=== PATIENT | male | born 1955 | race Caucasian/White ===

== ENCOUNTER 2020-11-24 04:28 | Observation (INO) | payer MEDICARE, BC ==
[~2020-11-24] VITALS: Ht 172.7 cm; Wt 118.2 kg
--- NOTE | ~2020-11-24 | HEMODYNAMI ---
PATIENT:FLORA OTERO MEDICAL RECORD: [id number] : 51 LOCATION:[facility] ADMISSION DATE: 11/24/20 Generatedon:111:32 Patient name: FLORA OTERO Patient #: [id number] SSN: DO B: 1955 Date of study: 11/24/2020 Page: Of Hemodynamic Procedure Report Patient Data Patient Demographics Procedure consent was obtained First Name: FLORA Gender: Male Last Name: BRANDEN : 1955 Patient #: [id number] Age: 65 year(s) Race: Unknown Additional ID: [id number] Contact details Address: [address] [place] [address] [address]REET State: [place] City: [place] Zip code: [address] Past Medical History History of disease Date Diagnosis Comments CAD Allergies Allergen Reaction Date Comments Reported Other allergy 11/24/2020 AUGMENTIN Admission Admission Data Admission Date: 11/24/2020 Admission Time: 5:50 Arrival Date: 11/24/2020 Arrival Time: 0:00 Admit Source: Other Room #: [id number] Height (in.): 67.72 BSA: 2.28 (m2) Height (cm.): 172 BMI: 39.89 (kg/m2) Weight (lbs.): 260.15 Weight (kg.): 118 Lab Results Lab Result Date: 11/24/2020 Lab Result Time: 0:00 Biochemistry Name Units Result Min Max BUN mg/dl 29 --(----)-* 7 18 Creatinine mg/dl 1.1 --(--*-)-- 0.6 1.3 CBC Name Units Result Min Max Hemoglobin g/dl 15.5 --(-*--)-- 13.5 17.5 Procedure Procedure Types Cath Procedure Diagnostic Procedure LHC LH w/Coronaries Sedation Charges Moderate Sedation 25-39 minutes PCI Procedure Hemochron ACT Test Procedure Description Procedure Date Procedure Date: 11/24/2020 Procedure Start Time: 11:01 Procedure End Time: 11:28 Procedure Staff Name Function Todd Casillas MD Performing Physician Shahla Monroe RT Monitor Travis Sierra RN Nurse Ed Martel RT Scrub Procedure Data Cath Procedure Fluoroscopy Diagnostic fluoroscopy Total fluoroscopy Time: 8.9 time: 8.9 min min Diagnostic fluoroscopy Total fluoroscopy dose: dose: 1107 mGy 1107 mGy Contrast Material Contrast Material Type Amount (ml) Isovue 300 87 Entry Location Entry Primary Successful Side Size Upsize Upsize Entry Closure Succes sful Closure Location (Fr) 1 (Fr) 2 (Fr) Remarks Device Remarks Femoral Right 5 Fr 6 Fr Exoseal artery Short Estimated blood loss: 10 ml Diagnostic catheters Device Type Used For End Catheter Placement MULTIPACK JL 4.0 5Fr Procedure catheter MULTIPACK 3DRC 5Fr Procedure catheter MULTIPACK Pigtail 5 Fr Procedure catheter Procedure Complications No complications Procedure Medications Medication Administration Route Dosage 0.9% NaCl I.V. 100 ml/hr Oxygen etCO2 Nasal cannula 2 l/min Heparin Flush Bag added to field 2 bags (1000units/500ml NS) Lidocaine 2% added to field 20 Versed I.V. 1 mg Fentanyl I.V. 50 mcg Versed I.V. 1 mg Fentanyl I.V. 50 mcg Versed I.V. 1 mg Fentanyl I.V. 50 mcg Heparin Bolus I.V. 5000 units Integrilin (Bolus I.V. 10.7 ml 2mg/ml) Digoxin I.V. 0.5 mg Hemodynamics Rest BSA: 2.28 (m2) HGB: 15.5 (g/dl) O2 Consumption: Estimated: 248.75 (ml/min) O2 Co nsumption indexed: Estimated:109.1 (ml/min/m) Heart Rate: 51 (bpm) Pressure Samples Time Site Value (mmHg) Purpose Heart Use Rate(bpm) 11:21 LV 123/18,19 Snapshot 55 Gradients Valve Time Site Site Mean SEP/DFP Peak To Heart Use 1 2 (mmHg) (sec/min) Peak Rate (mmHg) (bpm) Aortic 11:22 LV AO 79 Snapshots Pre Cath Intra NCS Post Cath Vital Signs Time Heart Resp SPO2 etCO2 NIBP (mmHg) Rhythm Pain Sedation Rate (ipm) (%) (mmHg) Status Level (bpm) 10:23:10 62 17 32.2 132/65(95) NSR 0 (11) 10(A) , No pain 10:27:59 63 12 98 35.9 127/69(95) NSR 0 (11) 10(A) , No pain 10:32:15 61 12 96 38.1 123/68(91) NSR 0 (11) 10(A) , No pain 10:36:38 62 11 96 39.6 129/65(100) NSR 0 (11) 10(A) , No pain 10:40:58 64 11 96 32.9 129/62(95) NSR 0 (11) 10(A) , No pain 10:45:26 66 18 97 36.7 132/74(106) NSR 0 (11) 10(A) , No pain 10:49:50 66 13 96 33.7 133/66(86) NSR 0 (11) 10(A) , No pain 10:54:10 64 11 96 37.4 129/64(100) NSR 0 (11) 10(A) , No pain 10:58:28 66 10 96 35.2 125/67(94) NSR 0 (11) 10(A) , No pain 11:02:46 67 11 95 13.4 120/68(95) NSR 0 (11) 10(A) , No pain 11:07:06 68 11 97 0 134/68(100) NSR 0 (11) 10(A) , No pain 11:11:33 68 12 97 29.9 133/70(93) NSR 0 (11) 10(A) , No pain 11:15:55 72 11 97 23.2 127/68(102) NSR 0 (11) 10(A) , No pain 11:20:15 69 11 98 35.2 131/76(105) NSR 0 (11) 10(A) , No pain 11:24:23 115 15 98 35.2 129/99(113) NSR 0 (11) 10(A) , No pain Medications Time Medication Route Dose Verified Delivered Reason Notes Effectiveness by by 10:31:15 0.9% NaCl I.V. 100 Todd Travis used for ml/hr [facility] Freddy Sierra RN procedure 10:31:22 Oxygen etCO2 2 Todd Robles used for Nasal l/min [facility] Freddy Sierra RN procedure cannula 10:31:31 Heparin Flush added 2 Todd Brooks used for Bag to bags [facility] John procedure (1000units/500ml field MD GARCIA NS) 10:31:38 Lidocaine 2% added 20ml Todd Brooks for local to vial [facility] anesthetic field MD GARCIA 10:57:13 Versed I.V. 1 mg Todd Robles for sedation St Freddy Sierra RN, MD 10:57:21 Fentanyl I.V. 50 Todd Robles for sedation mcg St Freddy Sierra RN, MD 11:00:22 Versed I.V. 1 mg Todd Rodríguezy for sedation St Freddy Sierra RN, MD 11:00:25 Fentanyl I.V. 50 Todd Rodríguezy for sedation mcg St Freddy Sierra RN, MD 11:02:26 Versed I.V. 1 mg Todd Robles for sedation St Freddy Sierra RN, MD 11:02:29 Fentanyl I.V. 50 Todd Rodríguezy for sedation mcg St Freddy Sierra RN, MD 11:08:26 Heparin Bolus I.V. 5000 Todd Robles for VERIF IED units St Freddy Sierra RN anticoagulation PER LIN CASILLAS MD 11:13:39 Integrilin I.V. 10.7 Todd Robles for WASTE D (Bolus 2mg/ml) ml St Freddy Sierra RN antiplatelet 9.3 ML therapy 11:25:21 Digoxin I.V. 0.5 Todd Robles for arrhythmia mg St Freddy Sierra RN, MD Procedure Log Time Note 10:06:09 Lab Result : BUN 29 mg/dl 10:06:09 Lab Result : Hemoglobin 15.5 g/dl 10:06:09 Lab Result : Creatinine 1.1 mg/dl 10:06:44 Admit Source: Other 10:06:50 Procedure Status Elective Heart Cath (OP). 10:06:53 Travis Sierra RN sent for patient. Start room use. 10:06:56 Time tracking: Regular hours (M-F 7:00 - 5:00) 10:07:00 Plan of Care:Hemodynamics will remain stable., Cardiac rhythm will remain stable., Comfort level will be maintained., Respiratory function will remain adequate., Patient/ family verbilizes understanding of procedure., Procedure tolerated without complication., Recovers from procedure without complications.. 10:21:53 Patient received from Pre/Post Procedure Room to [facility] Alert and oriented. Tansferred to table in Supine position. 10:21:55 Signed procedure consent form obtained from patient. 10:21:56 Warm blankets applied, and abel hugger turned on for patient comfort. 10::56 Correct patient and procedure confirmed by team. 10::57 Vital chart was started 10:22:00 Baseline sample Acquired. 10:22:05 Rhythm: sinus rhythm 10:22:07 Full Disclosure recording started 10:22:15 H&P Date Dictated: 11/24/2020 ER History on chart.. 10:22:30 Patient allergic to Other allergyAUGMENTIN 10:22:32 Is the patient allergic to Iodine/contrast media? No. 10:22:33 Is patient on blood thinner?No 10:22:38 Patient diabetic? Yes. 10:22:39 If diabetic: On Metformin? No 10:22:44 Previous problem with sedation/anesthesia? No ? 10:22:45 Snore? Yes 10:22:46 Sleep apnea? Yes 10:22:47 Deviated septum? No 10:22:48 Opens mouth fully? Yes 10:22:49 Sticks out tongue? Yes 10:22:51 Airway obstruction? No ? 10:22:56 Pre procedure: right dorsailis pedis pulse 1+ Palpable, but thready & weak; easily obliterated 10:22:58 Dentures? No ? 10:24:56 IV patent on arrival in left hand with 0.9% NaCl at [facility]. 10:26:02 Lab results completed and on chart. 10:26:06 Right groin area was prepped with chlora-prep and draped in sterile fashion 10:26:06 Alarms reviewed by R. N. 10:26:07 Sharps counted by scrub and verified by R.N. 10:30:47 Use device set Femoral Dx 10:30:48 ACIST Syringe (42044) opened to sterile field. 10:30:49 Bag Decanter (2002S) opened to sterile field. 10:30:50 ACIST Hand Control (34055) opened to sterile field. 10:30:50 ACIST Manifold (85631) opened to sterile field. 10:30:51 Tegaderm 4 x 4 (1626W) opened to sterile field. 10:30:52 Medline Cath Pack ([id number]) opened to sterile field. 10:30:53 DIAGNOSTIC Multipack 5Fr catheter set (VV3987) opened to sterile field. 10:30:54 SHEATH 5FR [place] (HEN247) opened to sterile field. 10:30:54 EMERALD Guide Wire (423-349) opened to sterile field. 10:31:15 0.9% NaCl 100 ml/hr I.V. was administered by Travis Sierra RN; used for procedure; Verbal order read back and verified. 10:31:22 Oxygen 2 l/min etCO2 Nasal cannula was administered by Travis Sierra RN; used for procedure; Verbal order read back and verified. 10:31:29 Zero performed for pressure channel P1 10:31:31 Heparin Flush Bag (1000units/500ml NS) 2 bags added to field was administered by Todd Casillas MD; used for procedure; Verbal order read back and verified. 10:31:38 Lidocaine 2% 20ml vial added to field was administered by Todd Casillas MD; for local anesthetic; Verbal order read back and verified. 10:36:34 Patient Weight : 260.15 lbs 10:36:38 Patient Height : 67.72 inches 10:36:42 Arrival Date: 11/24/2020 12:00:00 AM 10:42:11 Zero performed for pressure channel P1 10:54:13 Pre-procedure instructions explained to patient. 10:54:14 Pre-op teaching completed and patient verbalized understanding. 10:54:16 Family in patients room. 10:54:17 Patient NPO since Midnight. 10:56:54 --------ALL STOP TIME OUT------ 10:56:54 Final Timeout: patient, procedure, and site verified with staff and physician. All members of the team are in agreement. 10:56:55 Right groin site verified by team. 10:56:58 Fire Safety Assessment: A--An alcohol-based skin anteseptic being used preoperatively., C--Open oxygen or nitrous oxide is being used., D--An ESU, laser, or fiber-optic light is being used. 10:57:01 Physical assessment completed. ASA score P 2 - A patient with mild systemic disease as per Todd Casillas MD. 10:57:03 1) 90+ Normal kidney functon but urine findings or structural abnormalities or genetic trait point to kidney disease. 10:57:08 Maximum allowable contrast dose (3.7 X eGFR X 0.75)197 ml. 10:57:10 Sedation plan: IV Moderate Sedation Medication:Versed, Fentanyl 10:57:13 Versed 1 mg I.V. was administered by Travis Sierra RN; for sedation; Verbal order read back and verified. 10:57:21 Fentanyl 50 mcg I.V. was administered by Travis Sierra RN; for sedation; Verbal order read back and verified. 11:00:22 Versed 1 mg I.V. was administered by Travis Sierra RN; for sedation; Verbal order read back and verified. 11:00:25 Fentanyl 50 mcg I.V. was administered by Travis Sierra RN; for sedation; Verbal order read back and verified. 11:01:18 Procedure started. 11::52 Local anesthetic to right femoral artery with Lidocaine 2% by Todd Casillas MD.INITIAL ACCESS ONLY 11:02:26 Versed 1 mg I.V. was administered by Travis Sierra RN; for sedation; Verbal order read back and verified. 11::29 Fentanyl 50 mcg I.V. was administered by Travis Sierra RN; for sedation; Verbal order read back and verified. 11:03:36 A 5 Fr sheath was inserted into the Right Femoral artery 11:04:12 A MULTIPACK JL 4.0 5Fr catheter was advanced over the wire and used for Procedure. 11:05:37 LCA angiography performed. 11:06:10 Catheter removed. 11:06:15 A MULTIPACK 3DRC 5Fr catheter was advanced over the wire and used for Procedure. 11:06:56 RCA angiography performed. 11:06:57 Catheter removed. 11:08:26 Heparin Bolus 5000 units I.V. was administered by Travis Sierra RN; for anticoagulation; VERIFIED PER LIN CASILLAS MD Verbal order read back and verified. 11:09:11 Proceeding to intervention. 11:09:18 GUIDE 6FR XBLAD 3.5 catheter ([id number]) opened to sterile field. 11:09:23 INFLATOR Merit BasixCompak (JJ5221) opened to sterile field. 11:09:36 SHEATH 6FR [place] (EWN552) opened to sterile field. 11:10:02 BMW 300cm Straight Eckley 2 wire (5875615) opened to sterile field. 11:10:15 Sheath upsized to a 6 Fr Short. 11:10:25 Pre PCI Site: Sun'Aq LAD has 100% stenosis. 11:10:28 ACC Pre-intervention DONNELL Flow is 0. 11:10:36 6 Fr XBLAD 3.5 guide catheter was inserted over the wire 11:11:10 BMW 300 wire advanced. 11:13:39 Integrilin (Bolus 2mg/ml) 10.7 ml I.V. was administered by Travis Sierra RN; for antiplatelet therapy; WASTED 9.3 ML Verbal order read back and verified. 11:15:47 Wire removed. 11:15:53 UNABLE TO CROSS 11:15:59 WHISPER 300cm guide wire ([id number]) opened to sterile field. 11:16:10 WHISPER 300 wire advanced. 11:20:08 Wire removed. 11:20:18 UNABLE TO CROSS LESION 11:20:23 Guide catheter removed. 11:20:29 A MULTIPACK Pigtail 5 Fr catheter was advanced over the wire and used for Procedure. 11:21:16 LV gram done using VELÁSQUEZ 11::18 Injector settings: Ml/sec: 10, Volume: 20, 11:21:37 LV hemodynamics recorded. 11:21:56 EF : 55 % 11:22:01 Catheter removed. 11:22:10 EXOSEAL 6Fr (EX600) opened to sterile field. 11:22:50 Sheath removed intact; hemostasis achieved with Exoseal to the Right Femoral artery. 11:24:05 Procedure ended.(Physican Out) 11:24:31 Contrast amount:Isovue 300 87ml. 11:24:33 Maximum allowable dose exceeded? No. 11:24:39 Fluoroscopy time 08.90 minutes. 11:24:44 Fluoroscopy dose: 1107 mGy 11:24:44 Flurop Dose total: 1107 11:24:49 Dose Area Product 99970 mGy/cm. 11:24:51 Sharps counted by scrub and verified by R.N. 11:24:59 Post-op/insertion site Right Femoral artery dressed using a 4 x 4 and Tegaderm. 11:25:21 Digoxin 0.5 mg I.V. was administered by Travis Sierra RN; for arrhythmia; Verbal order read back and verified. 11:25:41 Post-procedure physical assessment completed. ASA score P 2 - A patient with mild systemic disease as per Todd Casillas MD. 11:25:44 Post procedure rhythm: atrial fibrillation 11:25:47 Estimated blood loss: 10 ml 11:25:56 Insertion/operative site no bleeding no hematoma. 11:25:58 Post procedure instruction explained to patient.Patient verbalizes understanding. 11:25:59 Patient needs reinforcement of post procedure teaching. 11:26:36 Procedure type changed to Cath procedure, Diagnostic procedure, LHC, C w/Coronaries, Sedation Charges, Moderate Sedation 25-39 minutes, PCI procedure, Hemochron ACT Test 11:27:11 Procedure and supply charges have been captured, reviewed, submitted and are correct. 11:27:13 Procedure Complication : No complications 11:27:15 Vital chart was stopped 11:27:22 [facility] Findings: MVD- MD will discuss options w/ pt 11:27:23 Operative report dictated upon procedure completion. 11:27:24 See physician's report for complete and final results. 11:27:26 Report given to Pre/Post Procedure Room. 11:27:28 Patient transfered to Pre/Post Procedure Room with Bed. 11:28:05 Procedure ended. 11:28:05 Full Disclosure recording stopped 11:28:10 End room use (Document Last) 11:30:13 ACT drawn and resulted at 192 seconds. (normal therapeutic range 180-240 seconds). 11:31:55 Procedure ended.(Physican Out) Device Usage Item Name Manufacture Quantity Catalog Hospital Part Current Minimal L ot# / Number Charge Number Stock Stock Serial# Code ACIST Acist 1 35768 266480 838126 769579 20 Syringe Medical (57874) Systems Inc Bag Microtek 1 364446 75886 512472 5 Decanter Medical Inc. () ACIST Hand Acist 1 95114 820938 216246 108723 5 Control Medical (91937) Systems Inc ACIST Acist 1 65077 980538 070034 469506 5 Manifold Medical (86260) Systems Inc Tegaderm 4 3M 1 1626W 471148 641389 225725 5 x 4 (1626W) Medline Medline 1 [id number] 719940 15447 695337 5 Cath Pack ([id number]) DIAGNOSTIC Cardinal 1 AG5162 039879 56415 810061 30 CRI Technologies 5Fr catheter set (PB1641) SHEATH 5FR Terumo 1 KZZ680 112499 668206 275271 5 [place] (VOK016) EMERALD Cardinal 1 502-455 916451 429741 742083 5 Guide Wire Health (502-455) MULTIPACK Cardinal 1 418859 5 JL 4.0 5Fr Health catheter MULTIPACK Cardinal 1 325966 5 3DRC 5Fr Health catheter GUIDE 6FR Cardinal 1 [id number] 045448 852983 719800 10 XBLAD 3.5 Health catheter ([id number]) INFLATOR Merit 1 VU1115 042287 106878 602001 15 [facility] Medical BasixCompak (WV6407) SHEATH 6FR Terumo 1 RJT145 994915 887782 999190 40 [place] (LXN502) BMW 300cm Carey 1 0120988 146088 569108 243544 5 Straight Vascular Eckley 2 wire (1383673) WHISPER Carey 1 [id number] 480757 364333 654894 5 300cm guide Vascular wire (2389090HX) MULTIPACK Cardinal 1 191726 5 Pigtail 5 Health Fr catheter EXOSEAL 6Fr Cardinal 1 EX600 386294 947696 837012 10 (EX600) Health Signature Audit Powers Stage Time Signature Unsigned Intra-Procedure 11/24/2020 Shahla Monroe 11:31:10 AM RT(R) Intra-Procedure 11/24/2020 Travis Sierra RN 11:31:55 AM Intra-Procedure 11/24/2020 Todd Blakely 11:32:44 AM [id number] [place] [address]
--- NOTE | ~2020-11-24 | OP ---
PATIENT NAME: FLORA OTERO MEDICAL RECORD: [id number] :51 LOCATION:D.M2 D.2125 ADMISSION DATE:11/24/20 SURGEON: TOM HAWLEY MD DATE OF OPERATION: 11/24/2020 PROCEDURE: Left heart catheterization, selective coronary angiography, right femoral artery approach. CATHETERS: A 5-Vincentian sheath, 5/4 left and right Fernie, 5/4 pig. The procedure was well tolerated. We proceeded to do PTCA of LAD. FINDINGS: Left ventriculography in 30-degree VELÁSQUEZ view: Normal wall motion and normal systolic function. CORONARY ANATOMY: LEFT MAIN: Left main is free of disease. LAD: Area of previous stenting is totally occluded. It does fill via right to left collaterals from the right. CIRCUMFLEX: Free of disease. RIGHT CORONARY ARTERY: Large, wrapped around the apex and fills the LAD as well. PLAN: Attempted intervention LAD momentarily. DESCRIPTION OF PROCEDURE: A 5-Vincentian sheath was exchanged for a 6-Vincentian sheath. XB LAD guiding catheter provided excellent guide catheter support. We tried both the BMW and Whisper wire, we were unable to cross the totally occluded LAD. We were unable to transverse this. Given normal LV function with good collaterals, it was felt that procedure be terminated at this point. Of note, the patient did have atrial fibrillation intermittently during the procedure that could explain some of the symptomatology. TRANSINT:[id number] Voice Confirmation ID: [id number] DOCUMENT ID: [id number] TOM HAWLEY MD CC: [id number] DICTATION DATE: 11/24/20 1127 MEDICAL EDUCATION MANAGER: 11/24/202039 ADM IN [address] [place] [address]
[2020-11-24 04:59] LABS: BASOPHILS 0.3 % (0-2); EOSINOPHILS 0 % (0-7); HEMATOCRIT 46.3 % (42.0-54.0); HEMOGLOBIN 15.5 g/dL (13.5-17.5); LYMPHOCYTES 5.3 % (15-50); MCH 28.4 pg (26.0-34.0); MCHC 33.4 g/dL (31.0-37.0); MCV 85.1 fL (80.0-100.0); MEAN PLATELET VOLUME 7.5 fL (7.4-10.4); MONOCYTES 0.9 % (2-11); NEUTROPHILS 93.5 % (40-80); RBC 5.44 10x6/uL (4.20-6.10); RDW 15.1 % (11.5-14.5); WBC 12.5 10x3/uL (4.8-10.8)
[2020-11-24 05:12] LABS: PLATELET COUNT 232 10x3/uL (130-400)
[2020-11-24 05:19] LABS: ANION GAP 16.5 mmol/L (8-16); APTT 31.9 SECONDS (22.8-39.4); CALCIUM 9.3 mg/dL (8.5-10.1); CARBON DIOXIDE 23.6 mmol/L (21.0-32.0); CREATININE - SERUM 1.1 mg/dL (0.6-1.3); INR 1.12 (0.85-1.17); POTASSIUM - SERUM 4.1 mmol/L (3.5-5.1); PROTIME 13.3 SECONDS (11.6-15.0)
[2020-11-24 05:20] LABS: D-DIMER-QUANTITATIVE 0.34 ug/mLFEU (0.20-0.54)
[2020-11-24 05:43] LABS: ALBUMIN 3.6 g/dL (3.4-5.0); BILIRUBIN - TOTAL 0.37 mg/dL (0.2-1.3); PROTEIN - SERUM 7.7 g/dL (6.4-8.2)
[2020-11-24 05:45] LABS: TROPONIN-I 0.253 ng/mL (0.000-0.060)
[2020-11-24 08:13] LABS: CHOL - HDL RATIO 3.5 ratio (2.3-4.9); LDL-HDL RATIO 1.8 ratio (1.5-3.5)
--- NOTE | 2020-11-24 08:58 | NUR ---
PT ARRIVED BY STRETCHER TO HOLDING ROOM 8 FROM ER. HANDOFF GIVEN AT BEDSIDE. PT ABLE TO AMBULATE FROM 1 STRETCHER TO HIS STRETCHER IN HOLDING. PT VOIDED 200 cc OF DARK YELLOW URINE IN URINAL. HAND HYGIENE COMPLETED. RIGHT GROIN PREPPED. CONSENTS HAVE BEEN COMPLETED. LEFT HAND 20G PIV PATENT WITH NS AT KVO. PRE OP MEDS WILL BE GIVEN FOR HEART CATH ORDERED. PT IN NO SIGN OF DISTRESS. CALL LIGHT WITHIN REACH.
[2020-11-24 09:00] VITALS: BP 133/66
--- NOTE | 2020-11-24 09:00 | NUR ---
TO FRENCH COMBER HOLDING
[2020-11-24] MEDS ORDERED: TRAZODONE HCL100 MG PO (09:12)
[2020-11-24] MEDS ORDERED: PLAVIX75 MG PO (09:13)
[2020-11-24] MEDS ORDERED: SYNTHROID75 MCG PO (09:13)
[2020-11-24] MEDS ORDERED: NOVOLOG100 UNIT/1 SC (09:14)
[2020-11-24] MEDS ORDERED: BAYER CHEWABLE81 MG PO (09:14)
[2020-11-24] MEDS ORDERED: PERCOCET 10-321 EAC1 PO (09:14)
[2020-11-24] MEDS ORDERED: TOUJEO SOL300 UNIT/1 SC (09:16)
[2020-11-24] MEDS ORDERED: CRESTOR20 MG PO (09:17)
[2020-11-24] MEDS ORDERED: XANAX1 MG PO (09:18)
[2020-11-24] MEDS ORDERED: ALTACE10 MG PO (09:19)
--- NOTE | 2020-11-24 11:45 | NUR ---
PT ARRIVED BY STRETCHER. PLACED ON MONITORS. ASSESSMENT COMPLETED. VSS AT THIS TIME. CALL LIGHT WITHIN REACH. FAMILY AT BEDSIDE.
--- NOTE | 2020-11-24 12:00 | NUR ---
RIGHT GROIN DRESSING C/D/I. NO S/S OF HEMATOMA NOTED. CALL LIGHT WITHIN REACH. RIGHT PEDAL PULSE PALPABLE. DR. HAWLEY NOTIFIED OF PT'S A-FIB RATE 130s-150s. ORDERS RECEIVED FOR SOTALOL P.O.. DR. FAULKNER NOTIFIED OF PT'S A-FIB AND SHE REQUESTED PT STAY OVERNIGHT TO MONITOR PT'S HEART RATE/RHYTHM. NOTIFIED LAMP ASSEMBLER ROSALINA AND PT AND PT'S . THEY VOICED UNDERSTANDING.
--- NOTE | 2020-11-24 12:30 | NUR ---
PT RESTING COMFORTABLY. DENIES NAUSEA/PAIN. RIGHT GROIN DRESSING C/D/I. NO S/S OF HEMATOMA NOTED. CALL LIGHT WITHIN REACH. VSS AT THIS TIME. PT GIVEN JELLO. HIS AT BEDSIDE TO ASSIST WITH FEEDING HIM.
--- NOTE | 2020-11-24 12:45 | NUR ---
ARRIVED IN ROOM. PT LAYING ON TOP OF ALL CORDS. HE HAD SAT UP TO SIDE OF BED TO URINATE WITH HIS 'S ASSISTANCE. TOLD PT AGAIN THAT HE COULD NOT SIT UP AND HE STATED "I KNOW, HOW ELSE AM I SUPPOSED TO GO". RIGHT GROIN DRESSING C/D/I. NO S/S OF HEMATOMA NOTED. RIGHT PEDAL PULSE PALPABLE. PT HAD VOIDED 500cc OF CLEAR YELLOW URINE IN URINAL. PT UNTANGLED FROM CORDS AND REPOSITIONED IN BED. IN SUPINE POSITION. INSTRUCTED PT AGAIN THE IMPORTANCE OF RECOVERING IN SUPINE POSITION WITH GROIN STICK. ALSO TALKED TO AGAIN. THEY VOICED UNDERSTANDING.
--- NOTE | 2020-11-24 13:10 | NUR ---
ATTEMPTED TO CALL REPORT TO MED 2. LOUVER DOOR ASSEMBLER STATES THAT THE ROOM IS DIRTY AND THE NURSE WAS IN A ROOM RIGHT NOW AND ASKED IF SHE COULD CALL ME WHEN THE ROOM WAS CLEAN.
--- NOTE | 2020-11-24 13:59 | NUR ---
RIGHT GROIN DRESSING C/D/I. NO S/S OF HEMATOMA NOTED. PT'S HEAD OF BED INC TO 30 DEGREES. TOLERATED WELL. SET UP WITH SANDWICH TRAY AND DRINK. DENIES NAUSEA/PAIN. RIGHT PEDAL PULSE PALPABLE. FAMILY AT BEDSIDE. NO NEEDS AT THIS TIME.
--- NOTE | 2020-11-24 14:15 | NUR ---
REPORT CALLED TO CARRIE RAHMAN LPN.
--- NOTE | 2020-11-24 14:30 | NUR ---
PT ARRIVED TO UNIT VIA BED ACCOMPANIED BY HOSPITAL STAFF. PT SETTLED INTO ROOM. AAO X4. DENIES NEEDS AT THIS TIME. CLIR. BED IN LOWEST POSITION. SIDE RAILS X2
[2020-11-24 14:56] VITALS: BP 137/81; Ht 172.7 cm; Wt 118.2 kg
[2020-11-24 16:01] VITALS: BP 140/62
[2020-11-24] MEDS ORDERED: FOLBEE PLUS TAB1 TAB PO (18:33)
[2020-11-24] MEDS ORDERED: GABAPENTIN300 MG PO (18:34)
[2020-11-24] MEDS ORDERED: ZETIA10 MG PO (19:05)
[2020-11-24 20:00] VITALS: BP 100/57
[2020-11-25] VITALS: BP 105/71
--- NOTE | 2020-11-25 00:52 | NUR ---
LILY CABEZAS APN HAD THIS NURSE [facility] ABOUT PLACING PT ON LOVENOX BC PT HAD BEEN IN UNCONTROLLED AFIB DURING THE DAY. SPOKE WITH ZOHREH SKY APN WITH CARDIOLOGY WHO STATED THAT A LOVENOX ORDER WOULD BE ADDRESSED TOMORROW. NO NEW ORDERS RECEIVED. WILL CONT POC.
--- NOTE | 2020-11-25 01:40 | NUR ---
REPORT RECEIVED. PT A&O, UP ON BEDSIDE. PT ANXIOUS ABOUT BLOOD SUGAR OF 342. TOLD PT THAT PER EMAR SLIDING SCALE, THIS NURSE COULD GIVE HIM 8 U. PT STATED "THAT'S NOT ENOUGH. I'M A BIG GURJIT". TOLD PT THAT THIS NURSE CANNOT GIVE MORE THAN WHAT IS ORDERED BY MD. PT STATED HE UNDERSTOOD BUT REQUESTED THAT THIS NURSE CALL MD FOR AN ORDER FOR MORE INSULIN. TOLD PT THIS NURSE WOULD CALL THE NURSE PRACTIONER RADIO JOURNALIST AFTER THIS NURSE FINISHED HER MED PASS. PT STATED THAT WAS FINE. PT ALSO STATED THAT HE NEEDED HIS TRAZADONE, NEURONTIN, AND FOLBEE MEDS. TOLD PT THAT THOSE MEDS HAD NOT BEEN RESTARTED BUT THAT THIS NURSE WOULD SPEAK TO THE [facility] ABOUT THOSE MEDS WHEN THIS NURSE CALLS THE [facility] ABOUT THE INSULIN. PT STATED THAT IF HE DOESN'T GET HIS MEDS, THEN HE WILL GO DOWN TO THE ER AND HAVE DR. ALEJANDRO PUT IN ORDERS FOR HIM. EXPLAINED TO PT THAT DR. ALEJANDRO WAS NOT HERE AND THAT THE [facility] OR DR. BARRIOS WOULD HAVE TO PUT IN ORDERS. EXPLAINED TO PT THAT THERE WAS NO ISSUE IN THIS NURSE CALLING AND GETTING ORDERS, BUT THAT THIS NURSE NEEDED THE PT TO GIVE THIS NURSE TIME TO PAGE THE [facility] IN ORDER TO GET NEW ORDERS. PT STATED THAT WAS FINE, STATED HE UNDERSTOOD THAT THIS NURSE COULD NOT GIVE HIM MEDICATIONS THAT WERE NOT ORDERED. PT EXPRESSED FRUSTRATION THAT HIS MEDS WERE NOT RESTARTED ON DAY SHIFT. APPOLOGIZED TO PT THAT HIS MEDS WERE NOT TAKEN CARE OF ON DAYSHIFT BUT THAT THIS NURSE WILL TAKE CARE OF IT NOW. THIS NURSE LEFT THE ROOM AND PAGED THE [facility] BEFORE CONTINUING HER MED PASS BC PT WAS VERY ANXIOUS ABOUT THE MEDS AND INSULIN. APPROXIMATELY 5 MINS HAD PASSED AND PT CAME TO NURSES STATION YELLING AT THIS NURSE THAT HE WANTED HIS INSULIN NOW OR HE WAS LEAVING. EXPLAINED TO PT THAT THIS NURSE HAD PAGED THE [facility] AND WAS WAITING FOR HER TO RETURN THE PAGE FOR NEW ORDERS. PT STATED HE WAS LEAVING AMA. EXPLAINED TO PT THAT SHE SEES MANY PTS IN THE HOSPITAL AND WILL RETURN THE PAGE WHEN SHE CAN DO SO. PT STATED "THIS IS UNACCEPTABLE", THAT "A 400 BLOOD SUGAR IS COMATOSE! AN EMERGENCY!" AND THAT THE [facility] SHOULD CALL RIGHT AWAY. PT STATED "MY SISTER OF A 400 BLOOD SUGAR". EXPLAINED TO PT, AGAIN, THAT THIS NURSE COULD NOT GIVE HIM MORE INSULIN WITHOUT A NEW ORDER. PT STATED HE WAS LEAVING AMA AND RETURNED TO HIS ROOM TO GATHER HIS THINGS. PTS SON ARRIVED ON FLOOR, PT HAD CALLED SON TO PICK HIM UP. THIS NURSE AND LALITO RIGGINS BROUGHT AMA PAPER TO PTS ROOM. CONFIRMED, AGAIN, THAT PT WAS LEAVING AMA AND PT STATED HE WAS. REMOVED IV FROM L HAND, CATHETER INTACT, BANDAGE IN PLACE. PT CONTINUED TO YELL AT THIS NURSE AND STATED HE WANTED TO KNOW THIS NURSES FULL NAME SO HE COULD REPORT THIS NURSE FOR NOT GIVING HIM MORE INSULIN. TOLD PT THIS NURSE WOULD BE WILLING TO DO THAT BUT THAT THIS NURSE NEEDED HIM TO SIGN AMA PAPER BEFORE HE LEAVES. [facility] RETURNED THIS NURSES CALL (WITHIN 15 MINS OF THE PAGE). PT STATED HE WANTED TO SPEAK TO THE [facility]. LILY CABEZAS APN RESTARTED PTS HOME MEDS AND ADJUSTED SLIDING SCALE FOR BETTER MANAGEMENT OF GLUCOSE LEVEL. PT STATED HE WOULD STAY BUT WANTED TO SPEAK WITH THE [facility]. LILY CABEZAS APN STATED THAT SHE WAS IN ADMISSIONS AT THAT TIME AND WOULD COME SEE THE PT IN HIS ROOM WHEN SHE WAS FINISHED WITH HER ADMISSIONS. PT STATED THAT WAS FINE. RESTARTED 22G IV TO R HAND. ADMINISTERED NEURONTIN AND TRAZEDONE. PTS BLOOD SUGAR WAS 392 2 HRS AFTER ADMINISTRATION OF 16U PER NEW SLIDING SCALE, ORDER RECEIVED FROM LILY CABEZAS APN FOR ONE TIME DOSE OF 20U OF HUMULIN TO CONTROL BLOOD SUGAR. PT APOLOGIZED TO THIS NURSE FOR HIS BEHAVIOR. STATED HE UNDERSTOOD THAT THIS NURSE EXHAUSTED HER RESOURCES AND THAT IT WAS NOT THIS NURSES FAULT THAT HIS MEDS WERE NOT RESTARTED. TOLD PT WE ARE PUTTING IT BEHIND US AND MOVING FOREWARD. PT AGREED, STATED HE WAS GLAD HE WAS STAYING AND APPRECIATED THIS NURSES PATIENTS.
[2020-11-25 04:00] VITALS: BP 97/45
[2020-11-25 08:52] VITALS: BP 120/62
[2020-11-25] MEDS ORDERED: CRESTOR10 MG PO (08:56)
[2020-11-25] MEDS ORDERED: BETAPACE 120 M120 MG PO (08:57)
== END 2020-11-25 12:33 | disposition home or self-care (01) ==
LOC: D.ER 04:28 → OBSVTIME 05:50 → D.CLR 05:50 → D.M2 14:16
PROVIDERS: Family Medicine; Internal Medicine Interventional Cardiology; ADMIT Emergency Medicine; ATTEND Emergency Medicine
DX: I25.10 Atherosclerotic heart disease of native coronary artery without angina pectoris (principal); R07.9 Chest pain, unspecified; E11.9 Type 2 diabetes mellitus without complications; I21.A1 Myocardial infarction type 2; I10 Essential (primary) hypertension; Z79.4 Long term (current) use of insulin; E78.5 Hyperlipidemia, unspecified